=== PATIENT | female | born 1930 | race African-American/Black ===

== ENCOUNTER 2019-03-27 19:33 | Emergency (ER) | payer MEDICAID, OTHER ==
[~2019-03-27] VITALS: Ht 157.5 cm; Wt 65.8 kg
--- NOTE | 2019-03-27 19:36 | NUR ---
ILDA FROM [facility] FOR R RADIUS DISPLACEMENT FX, PT C/O PAIN AT R SHOULDER. TO ER BED 12, HOOKED TO MONITOR, CHANGED TO HOSPITAL GOWN, PROVIDED W WARM BLANKET, AWAITING MD GUERIN.
--- NOTE | 2019-03-27 19:58 | NUR ---
DR CYR AT BEDSIDE
[2019-03-27] MEDS ORDERED: ACETAMINOPHEN ES 500 MG TABLET PO ONE (20:00)
[2019-03-27] MEDS ORDERED: ACETAMINOPHEN ES 500 MG TABLET ONE (20:01)
--- NOTE | 2019-03-27 21:48 | NUR ---
CALLED [facility] CRISIS line at , spoke with bending machine set up operator regarding patient reporting staff aggressive behavior. Advised to fax report to nearby office [phone]
--- NOTE | 2019-03-27 22:00 | NUR ---
CALLED [facility] FOR TRANSPORTATION, ETA [phone]
--- NOTE | 2019-03-27 22:07 | NUR ---
REPORT GIVEN TO MIRELLA NIELSEN [facility]
--- NOTE | 2019-03-27 22:58 | NUR ---
Patient picked up by [facility] [address] in stable condition. Written and verbal after care instructions given. Patient verbalizes understanding of instruction. Patient will be brought back to [facility].
[2019-03-27 22:59] VITALS: BP 130/70
== END 2019-03-27 23:00 ==
LOC: ER 19:36
DX: S60.221A Contusion of right hand, initial encounter (principal); R51 Headache; I50.9 Heart failure, unspecified; I70.90 Unspecified atherosclerosis; E11.40 Type 2 diabetes mellitus with diabetic neuropathy, unspecified; G93.40 Encephalopathy, unspecified; Z87.440 Personal history of urinary (tract) infections; W18.39XA Other fall on same level, initial encounter; Y93.89 Activity, other specified; Y92.89 Other specified places as the place of occurrence of the external cause; Y99.8 Other external cause status
CPT/HCPCS: 70450-TC; 73060-TC; 73090-TC